=== PATIENT | female | born 1980 | race Caucasian/White ===

== ENCOUNTER → 2024-11-26 12:58 | Outpatient (REF) | payer BC, SELFPAY | LOC: RAD 12:58 | PROVIDERS: FAMILY PHYSICIAN Student in an Organized Health Care Education/Training Program | DX: N92.0 Excessive and frequent menstruation with regular cycle (principal) | CPT/HCPCS: 76830; 76856 ==

== ENCOUNTER → 2025-01-17 06:45 | Outpatient (REF) | payer BC, SELFPAY | LOC: RAD 06:45 | PROVIDERS: ATTENDING PHYSICIAN Internal Medicine; FAMILY PHYSICIAN Student in an Organized Health Care Education/Training Program | DX: R10.31 Right lower quadrant pain (principal) | CPT/HCPCS: 74177; Q9967 ==

== ENCOUNTER → 2025-01-28 07:10 | Outpatient (REF) | payer BC, SELFPAY | LOC: RAD 07:10 | PROVIDERS: ATTENDING PHYSICIAN Internal Medicine; FAMILY PHYSICIAN Student in an Organized Health Care Education/Training Program | DX: R10.31 Right lower quadrant pain (principal) | CPT/HCPCS: 76700 ==